=== PATIENT | female | born 1965 | race Two or more races ===

== ENCOUNTER → 2017-05-20 | Outpatient (CLI) | payer OTHER | LOC: FIMAGING 13:00 | PROVIDERS: ATTEND Obstetrics & Gynecology | DX: Z12.31 Encounter for screening mammogram for malignant neoplasm of breast (principal) ==

== ENCOUNTER → 2018-05-25 | Outpatient (CLI) | payer OTHER | LOC: FIMAGING 10:15 | PROVIDERS: ATTEND Obstetrics & Gynecology | DX: Z12.31 Encounter for screening mammogram for malignant neoplasm of breast (principal); Z80.3 Family history of malignant neoplasm of breast ==

== ENCOUNTER 2018-08-15 15:14 | Inpatient (IN) | payer OTHER ==
--- NOTE | 2018-08-15 15:36 | EDPHY ---
H & P Stated Complaint: SI s attempt x2D when learning of new stressors. Med compliant. Time Seen by Provider: 08/15/18 15:25 HPI/ROS: CHIEF COMPLAINT: Depression, suicidal ideation HISTORY OF PRESENT ILLNESS: Patient is a 52-year-old female with a longstanding history of depression who has been on Effexor for several years. She states that her left her 2 months ago and since then she has also been seeing a psychiatrist and has started Wellbutrin, trazodone and Klonopin. Today she found out that her former had been sleeping with someone while they were and is now having suicidal thoughts. She has not ever attempted to harm herself. Her mom brought her here to the ER voluntarily. She denies recent drug or alcohol use. No recent illness or injury. Severity: Moderate Modifying factors: None REVIEW OF SYSTEMS: Constitutional: denies: chills, fever, recent illness, recent injury EENTM: denies: blurred vision, double vision, nose congestion Respiratory: denies: cough, shortness of breath Cardiac: denies: chest pain, irregular heart rate, lightheadedness, palpitations Gastrointestinal/Abdominal: denies: abdominal pain, diarrhea, nausea, vomiting, blood streaked stools Genitourinary: denies: dysuria, frequency, hematuria, pain Musculoskeletal: denies: joint pain, muscle pain Skin: denies: lesions, rash, jaundice, bruising Neurological: denies: headache, numbness, paresthesia, tingling, dizziness, weakness Hematologic/Lymphatic: denies: blood clots, easy bleeding, easy bruising Immunologic/allergic: denies: HIV/AIDS, transplant 10 systems reviewed and negative except as noted EXAM: GENERAL: Overweight, tearful HEAD: Atraumatic, normocephalic. EYES: Pupils equal round and reactive to light, extraocular movements intact, sclera anicteric, conjunctiva are normal. ENT: TMs normal, nares patent, oropharynx clear without exudates. Moist mucous membranes. NECK: Normal range of motion, supple without lymphadenopathy or JVD. LUNGS: Breath sounds clear to auscultation bilaterally and equal. No wheezes rales or rhonchi. HEART: Regular rate and rhythm without murmurs, rubs or gallops. ABDOMEN: Soft, nontender, normoactive bowel sounds. No guarding, no rebound. No masses appreciated. BACK: No CVA tenderness, no spinal tenderness, step-offs or deformities EXTREMITIES: Normal range of motion, no pitting or edema. No clubbing or cyanosis. NEUROLOGICAL: Cranial nerves II through XII grossly intact. Normal speech, normal gait. 5/5 strength, normal movement in all extremities, normal sensation , normal reflexes PSYCH: Tearful, depressed SKIN: Warm, dry, normal turgor, no visible rashes or lesions. Source: Patient Exam Limitations: No limitations - Personal History Current Tetanus/Diphtheria Vaccine: Yes - Medical/Surgical History Hx Asthma: No Hx Chronic Respiratory Disease: No Hx Diabetes: No Hx Cardiac Disease: No Hx Renal Disease: No Hx Cirrhosis: No Hx Alcoholism: No Hx HIV/AIDS: No Hx Splenectomy or Spleen Trauma: No Other PMH: Depression - Family History Significant Family History: No pertinent family hx - Social History Smoking Status: Never smoked Alcohol Use: None Constitutional: Initial Vital Signs Temperature (C) 36.8 C 08/15/18 15:18 Heart Rate 92 08/15/18 15:18 Respiratory Rate 18 08/15/18 15:18 Blood Pressure 108/78 08/15/18 15:18 O2 Sat (%) 95 08/15/18 15:18 O2 Delivery Mode Room Air Allergies/Adverse Reactions: peanut Allergy (Verified 08/15/18 15:18) Sulfa (Sulfonamide Antibiotics) Allergy (Verified 08/15/18 15:18) Medical Decision Making ED Course/Re-evaluation: 5:00 p.m. patient is medically cleared. Awaiting psychiatric evaluation. 9:30 p.m. Patient evaluated by Mental Health and placed on an M1 hold by mt. Accepted by Dr. Fisher to [facility]. Transfer paperwork completed. Differential Diagnosis: Partial list of the Differential diagnosis considered include but were not limited to; duration, suicidality, substance abuse and although unlikely based on the history and physical exam, I also considered head injury, infection. - Data Points Laboratory Results: Laboratory Results 08/15/18 16:15 08/15/18 16:15 Medications Given: Trazodone HCl (Trazodone) 100 mg PO HS LESLY Stop: 02/12/19 00:44 Last Admin: 08/16/18 01:01 Dose: 100 mg Venlafaxine HCl (Effexor Xr) 75 mg PO HS LESLY Stop: 02/12/19 00:44 Last Admin: 08/16/18 01:01 Dose: 75 mg Departure - Departure Disposition: [facility] IP Clinical Impression: Suicidal ideation Condition: Fair
[2018-08-15 16:37] LABS: PLATELET COUNT 298 10^3/uL (150-400)
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
--- NOTE | 2018-08-15 23:04 | ASMTTCLDSP ---
TLC Discharge Disposition Disposition: Answers: Admit Disposition Notes: Notes: Pt admitted. Discharge Concerns/Recommendations: Notes: In consultation with [facility] ED physician, Pollo Kendall MD and on-call psychiatrist, Олег Fisher MD, both concurred that pt appears to meet 27-65 criteria requiring psychiatric hospitalization as pt appears to be at risk of harm to self due to a mental illness condition. . Pt was read the Patient Rights and Responsibilities Statement on 08/15/18 at 21:30 hrs, original placed on chart, and was given photocopy of Rights. Pt signed the Patient Rights. Pt was given the 3N prohibited belongings list while in the ED. Was patient given the Answers: Yes Inpatient Behavioral Health Prohibited Belongings List while in the ED? For inpatient Олег Fisher MD admission, the following psychiatrist agreed to accept patient for admission to Behavioral Health ([facility]): Type of Hold: Answers: M1/72-hour Hold Hold initiated by: Answers: ED Physician Date Signed: 08/15/2018 11:03 PM Electronically Signed By:Priscilla Hernandez
--- NOTE | 2018-08-15 23:41 | GCON ---
[f rep st] CONSULTATION DATE OF CONSULTATION: 08/15/2018 CHIEF COMPLAINT: Suicidal ideation. HISTORY OF PRESENT ILLNESS: The patient is a pleasant 52-year-old female with a past medical history of depression who presented to the [facility] emergency room after developing suicid al ideation. She describes a long history of depression and had been on Effexor over the past years. The dose was being tapered down as she was interested in stopping to reassess its necessity. Unfor tunately, her of 20 years left their marriage and patient also found out that he had been hav ing an affair. This worsened her depression, so she was working with a local psychiatrist, Dr. Riya muhammad, and the dose of Effexor was being titrated up. Recently, as well, Wellbutrin was added and she w as taking trazodone at nighttime for sleep. Clonazepam was used twice a day and also an additional d ose midday if needed for increased anxiety. Unfortunately, despite medication changes, she started d eveloping suicidal thoughts. She corresponded with her mental health providers and ultimately then c ibeth to the emergency room. She is currently on an M1 hold [facility] PAST MEDICAL HISTORY: Depression. PAST SURGICAL HISTORY: None. MEDICATIONS: As detailed in the HPI. ALLERGIES: Sulfa drugs and peanut allergy. FAMILY HISTORY: Mother is currently living and reportedly healthy. Father of stomach cancer. SOCIAL HISTORY: The patient is currently going through a divorce. She has 1 child with her former elidia usband. She is a nonsmoker. No known history of substance abuse. REVIEW OF SYSTEMS: CONSTITUTIONAL: No report of any fevers or chills. ENT: No recent upper respir atory illnesses. CARDIOVASCULAR: No complaints of any chest pains, palpitations, or syncopal episod es. RESPIRATORY: No shortness of breath or productive cough. GI: No nausea, vomiting, diarrhea. Positive for recent constipation. No focal abdominal pains. NEUROLOGIC: No complaints of any heada ches or focal weakness. HEMATOLOGIC: No history of any deep vein thrombosis or pulmonary embolism. PSYCHIATRIC: Positive for depression and anxiety. ENDOCRINE: No history of polyuria or heat intol erance. SKIN: No new skin rashes. MUSCULOSKELETAL: No joint pains. PHYSICAL EXAM: VITAL SIGNS: Temperature 36.5, blood pressure 115/78, heart rate 72 respirations 16, satting 95% on room air. GENERAL: The patient appears comfortable, but she is tearful during our d iscussion. HEENT: Extraocular movements appear intact. No scleral icterus. NECK: Supple. No thy roid enlargement. CHEST: Clear on auscultation with normal respiratory effort. HEART: Regular rat e and rhythm. No murmurs. ABDOMEN: Soft, nontender, nondistended. Normal bowel sounds. : No F oley catheter in place. EXTREMITIES: No significant pitting edema or calf pain with palpation. KULDEEP ROLOGIC: Cranial nerves 2-12 appear grossly intact. 5/5 strength in extremities. LABORATORIES: White blood cell count 5, hemoglobin 13, platelets 298. Sodium 139, potassium 3.8, ch loride 106, bicarb 21, BUN 10, creatinine 0.7, glucose of 108. Beta hCG negative. Urine toxicology negative. ASSESSMENT/PLAN: Suicidal ideation. The patient unfortunately has had worsening depression by medic ation changes. Certainly recent lifestyle adjustments with her pending divorce are worsening her sit uation. Patient will be transferred to inpatient Behavioral Health for further evaluation and treatm ent. Otherwise, no other medical issues are identified during this evaluation. /[id number]/MODL
[2018-08-16] MEDS ORDERED: MAG HYDROX/AL HYDROX/SIMETH 30 ML UDCUP PO PRN (00:32)
[2018-08-16] MEDS ORDERED: ACETAMINOPHEN 325 MG TAB PO PRN (00:32)
[2018-08-16] MEDS ORDERED: NICOTINE POLACRILEX 2 MG GUM B PRN (00:32)
[2018-08-16] MEDS ORDERED: LORazepam 0.5 MG TAB PO PRN (00:32)
[2018-08-16] MEDS ORDERED: OLANZapine DISINTEGR 10 MG TAB PO PRN (00:32)
[2018-08-16] MEDS ORDERED: VENLAFAXINE XR 75 MG CAP PO SCH ×2 (00:45→18:00)
[2018-08-16] MEDS: traZODone 100 MG TAB PO SCH ×2 (01:01→21:12)
[2018-08-16] MEDS ORDERED: OLANZapine DISINTEGR 5 MG TAB PO PRN (08:30)
[2018-08-16] MEDS: VENLAFAXINE XR 75 MG CAP PO SCH (08:31)
[2018-08-16] MEDS: LORazepam 1 MG TAB PO SCH ×2 (08:32→21:13)
[2018-08-16] MEDS ORDERED: clonazePAM 0.5 MG TAB PO SCH (09:00)
--- NOTE | 2018-08-16 09:52 | BAPA ---
[f rep st] ADMISSION PSYCHIATRIC ASSESSMENT DATE OF SERVICE: 08/16/2018 CHIEF COMPLAINT: "Couldn't bear emotional pain anymore." HISTORY OF PRESENT ILLNESS: From the ED note dated 08/15/2018, patient presented to the emergency room, reported her left her 2 months ago, and since has also been seeing a psychiatrist and started antidepressant and anti-anxiolytic medications. Patient reported that prior to presenting to the emergency room she found out her former had been sleeping with someone while they were and reported having suicidal thoughts. Patient was brought to the emergency room by her mother. From the [facility] evaluation dated 08/15/2018, patient was placed on a 72-hour M1 hold with start date and time of 08/15/2018 at 8:38 p.m. Patient reported to the [facility] agriculture consultant, "My left me on June 20. He informed me he had 2 affairs during our marriage. I can't stand it anymore. The pain is too much. I can't bear it. I just want it to stop." Patient reports history of depression and anxiety. Patient reports being on Effexor 75 mg p.o. q. day for quite some time. Reports that at one point she was working with the psychiatrist on tapering and discontinuing Effexor. However, due to current circumstances, Effexor was increased back to 75 mg p.o. q. day. Patient reports also starting trazodone with current dose of 100 mg p.o. q.h.s. for sleep. Patient reports good response for trazodone for insomnia symptoms. Patient also describes prescription of Klonopin 0.5 mg p.o. b.i.d. Patient reports she feels as though Klonopin takes a long time to start working. Patient describes current psychiatric symptoms as depression symptoms , including depressed mood nearly all day every day, poor appetite with recent weight loss, insomnia, fatigue, loss of energy, feelings of worthlessness, and recent suicidal ideation. The patient also describes anxiety symptoms, including excessive worry and finding it difficult to control her worry leading to being easily fatigued and at times sleep disturbance. Patient reports no history of abuse. Patient denies other psychiatric symptoms, including symptoms of tequila, ADHD, OCD, PTSD, psychosis, and any other symptom of psychiatric disorder not already described above. PAST PSYCHIATRIC HISTORY: Patient reports history of depression since high school. Patient reports she has engaged in therapy periodically and started taking medications in 2008. Patient reports no history of suicide attempts. Patient does report a history of having suicidal thoughts but reports never having a plan. Patient reports no history of psychiatric hospitalizations. Patient reports she currently engages in individual therapy and attends appointments every 2 weeks. Patient reports she did contact her therapist prior to presenting to the emergency department. Patient reports started seeing a psychiatrist in June of this year. Patient's current psychiatrist is Dr. Cueva and therapist Galina Murry. ALLERGIES: 1. Peanuts. 2. Sulfa. CURRENT MEDICATIONS: 1. Tylenol 650 mg p.o. q.4 hours p.r.n. 2. Ativan 1 mg p.o. b.i.d. 3. Maalox syrup 30 mL p.o. q.6 hours p.r.n. 4. Milk of magnesia 30 mL p.o. q. day p.r.n. 5. Trazodone 100 mg p.o. q.h.s. 6. Effexor XR 150 mg p.o. q. day. PAST MEDICAL HISTORY: Patient reports past medical history as a partial dislocated collarbone and sprained ankle. Patient has had 2 pregnancies, 1 full term with normal delivery and 1 miscarriage. SOCIAL HISTORY: Patient reports she was for 20 years and has a 17-year- old son who will graduate this year. Patient describes her moving out June of 2018 and reports that her initially agreed to attend counseling to try to work on their marriage but later stated he did not love the patient anymore and requested a divorce. Patient recently learned that her had 2 affairs during their marriage. 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 The patient reports that the community is very supportive to her. Patient reports her son resides in the home with her, and her moved into his own condo in a neighboring community prior to her admission. Patient describes sexual orientation as heterosexual. Reports she is currently not sexually active. Patient describes having a very supportive network. Reports the community in which she lives is supportive. She has several supportive friends and is currently well established with both psychiatry and therapist on an outpatient basis. Patient describes highest level of education as master of arts degree in moravian studies at [employer]. 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 Patient reports this is currently a 6-month position with the possibility of becoming permanent. 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 The patient reports no history of duty. Reports no legal history. The patient identifies herself as agnostic and reports no taoist or spiritual practice that may impact her treatment. Patient reports several leisure activities, including singing, watching sci-fi movies, reading books, working with her personal carer twice a week, jogging around the [place], and playing with her dog during her free time. SUBSTANCE USE HISTORY: Patient reports first use of alcohol at age 20. Patient reports she currently drinks 1 glass of wine a few nights a week. Patient reports since June of 2018 when starting psychotropic medications she typically only consumes 1 drink once per week. Patient describes first using marijuana at the age of 21 and reports current pattern of use as every couple of months in the form of chocolate edibles and reports she sometimes vapes. Patient reports she last used marijuana on June 20, 2018. Patient's blood alcohol level and toxicology screen were negative at time of admission. FAMILY PSYCHIATRIC HISTORY: Patient reports both maternal and paternal grandfathers abused alcohol. Patient reports maternal uncle abused illicit drugs, did not describe specifics. Patient reports depression on maternal side of the family. ADMISSION LABS AND STUDIES: 1. CBC within normal limits except MCHC was low at 32.0. 2. BMP within normal limits except carbon dioxide was low at 21. Glucose is elevated at 108. 3. Beta hCG qualitative test was negative. 4. Toxicology screen was negative for all the substances that were screened and negative for ethyl alcohol. MENTAL STATUS EXAM: The patient is a well-nourished female looking stated chronological age. Attire is appropriate, and dress is casual. Grooming status is appropriate. Ambulation is independent. Gait is normal and coordinated. Posture is normal and relaxed. Eye contact is appropriate and adequate. Motor activity is appropriate with purposeful, organized, coordinated movements with no involuntary movements noted. Attitude is cooperative and friendly. Patient appears attentive and relates well to this interviewer. Language production is spontaneous. Rate, rhythm, and volume are normal. Articulation is clear. Patient reports mood as "depressed" with congruent affect. Patient is tearful during evaluation. Patient's thought process is linear and logical with no loose associations, tangential thought, thought blocking, concrete thinking, or any other signs of formal thought disorder. Patient does not report suicidal or homicidal thoughts, ideas, or plans. Patient denies auditory, visual hallucinations. Patient denies delusions. Patient does not appear to be attending to internal stimuli. Patient is oriented to person, place, time, and situation. The patient's attention and concentration are fair. Patient's insight and judgment are fair. There is no evidence of gross cognitive dysfunction at any point during the interview and no evidence of apparent dysfunction in recent or remote memory noted. The patient does not report undesirable side effects from current medications. DIAGNOSIS: Based on the patient's history and current presentation, patient's diagnoses are: 1. Adjustment disorder with disturbance of emotion. 2. Major depressive disorder, severe, with anxious distress. 3. Generalized anxiety disorder. FORMULATION: Patient is a 52-year-old female currently and going through a divorce, currently living in [place], [place], with her son, presents to the hospital involuntarily due to a risk to herself and is currently on an M1 hold. Patient requires continued inpatient care because of current depression and recent suicidal ideation. Patient presents with increased depression and anxiety. The exacerbation of symptoms was preceded by patient's asking for a divorce and patient recently finding out her had affairs while they were . Patient has a past psychiatric history of depression and at time of admission was treated with Effexor XR 75 mg p.o. q. day, trazodone 100 mg p.o. q.h.s., and patient also reports taking Wellbutrin XL 300 mg p.o. q. day. Patient also recently started on Klonopin 0.5 mg p.o. b.i.d. for anxiety. Patient is a high suicide safety risk due to current depression and recent suicidal ideation. Protective factors while hospitalized include ongoing safety checks, active involvement in treatment, and support from our treatment team. Patient could benefit from inpatient hospitalization for safety, crisis stabilization, and medication evaluation. PLAN: 1. Medications: After reviewing options, risks, and benefits with the patient , patient agrees to current medications listed above. Patient reports that Effexor XR has been beneficial in the past. She has never been dosed higher than 75 mg and agrees to trial of 150 mg p.o. q. day. Patient agrees to continue trazodone 100 mg p.o. q.h.s. for sleep. Patient also states that she feels as though Klonopin is helpful, however, takes too long to work. The patient agrees to trial of Ativan 1 mg p.o. b.i.d. and agrees to discontinue Klonopin. No other medication changes at this time as more time is needed to determine ongoing tolerability and efficacy. Plan is to continue to observe patient for response and side effects from medications, and ongoing monitoring and evaluation. 2. Review with patient informed consent and recommendations for psychotropic medication treatment listed below 3. Labs: TSH, liver function, lipid panel, and A1c 4. Therapy: continue milieu and group therapy 5. Further investigation including gathering information from patients relatives and review of past case records to inform treatment plan. 6. Safety/Wellness plan and follow-up outpatient appointments to be established prior to discharge. Next steps are for patient to meet with career manager to plan a safe discharge plan and establish outpatient services for ongoing treatment. 7. Confer with inpatient treatment team regarding treatment plan. 8. Address psychosocial stressors by meeting with home health caregiver to establish discharge plan including referrals for outpatient services. 9. Legal status: M1 10. Consider discharge on Thursday if patient is in stable condition, safe, and has a safe discharge plan. ESTIMATED LENGTH OF STAY: 1-3 days PSYCHOTROPIC MEDICATION TREATMENT INFORMED CONSENT and RECOMMENDATIONS: Review nature of condition, diagnosis, and prognosis. Review nature and purpose of psychotropic medication treatment. Review type of psychotropic medications being ordered. Review risk and benefits of psychotropic medication treatment. Review probable length of time will need to take medications. Review risk and benefits of not undergoing psychotropic medication treatment. Review alternative treatments to psychotropic medications. Review psychotropic medications contraindications, drug-drug interactions, side effects, and importance of reporting any side effects to a psychiatric provider or nurse during inpatient hospitalization, and upon discharge to patients psychiatric outpatient provider, primary care provider, or other health childcare aide. Review importance of asking a nurse, psychiatric provider, or primary care provider any questions or problems concerning the psychotropic medications. Verify patient understands the information that has been provided, and understands, accepts, and agrees to psychotropic medications. Review patients safety plan and importance of patient to communicate to staff while hospitalized if patient is ever a danger to self/others, or unable to care for self, and upon discharge, the importance for patient to contact [facility] or [facility], or go to the nearest emergency room, if patient is ever a danger to self/others, or unable to care for self. Recommend that upon discharge patient establish medication management treatment with a psychiatric provider, establishes routine therapy appointments, and follow-up with primary care provider. Verify patient understands and agrees to these recommendations. /[id number]/MODL MTDD
[2018-08-16] MEDS: MAGNESIUM HYDROXIDE 30 ML UDCUP PO PRN ×2 (14:21→20:10)
--- NOTE | 2018-08-16 14:43 | ASMTBHMTP ---
Master Treatment Plan Master Treatment Plan Answers: Depressed Mood with for: Suicidal Ideation Date: 08/16/2018 Diagnosis on Admission: Major Depressive Disorder, recurrent, severe 296.33 (F33.2) Expected length of stay: 3-5 Reason for admission: Notes: The patient in June of 2018 after learning that her had multiple affairs. She stated, "I can't stand it anymore, the pain is too much and I can't bear it. I just want it to stop." The patient reported increased suicidal ideation. Patient's stated presenting problems: Notes: The patient recently . As a result, she is unable to regulate and her daily functioning has decreased. Patient's goals for treatment: Notes: The patient stated, "I want to feel like I can bear emotional pain or reduce. I don't want to feel hopeless or I would like to do anything stop." Patient's strengths: Notes: The patient stated, "You don't have large enough piece of paper. 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 Cueva and Galina Murry. She is also supported by her mother. Discharge criteria: Notes: Suicidal ideation will resolve and patient will have a plan to safely manage recurrent suicidal ideation. Initial disposition plan/considerations: Notes: The patient will return home, to routine, and follow up care. Master Treatment Plan Required Signatures Psychiatrist signature: Answers: BELLE Cnote: RN on-shift signature: Answers: RN: Patient signature: Answers: Patient: Date Signed: 08/16/2018 02:41 PM Electronically Signed By:Adriana Nelson
[2018-08-16] MEDS ORDERED: ESTRADIOL 42.5 GM CRTUBE VG SCH ×2 (21:00)
--- NOTE | 2018-08-17 07:57 | SOAPPROG ---
SOAP Progress Note Assessment/Plan: Assessment: Major Depressive Disorder, Severe, with anxious distress. Improvement noted. ( see subjective/objective note). Patient could benefit from continued inpatient hospitalization for crisis stabilization, safety, medication evaluation, and to establish safe discharge plan including follow-up appointments. Consider discharge tomorrow. Plan: 1. Psychotropic medications: After reviewing options, risks, and benefits patient agrees to continue current medications. No medication changes at this time as more time is needed to determine ongoing tolerability and efficacy. Plan is to continue to observe patient for response and side effects from medications, and ongoing monitoring and evaluation. 2. Review with patient informed consent and recommendations for psychotropic medication treatment listed below 3. Labs: no additional at this time 4. Therapy: continue milieu and group therapy 5. Further investigation including gathering information from patients relatives and review of past case records to inform treatment plan. 6. Safety/Wellness plan and follow-up outpatient appointments to be established prior to discharge. Next steps are for patient to meet with customer care agent to plan a safe discharge plan and establish outpatient services for ongoing treatment. 7. Confer with inpatient treatment team regarding treatment plan. 8. Psychosocial stressors addressed through director of casework department. 9. Legal status: M1 10. Consider discharge this week if patient is in stable condition, safe, and has a safe discharge plan. PSYCHOTROPIC MEDICATION TREATMENT INFORMED CONSENT and RECOMMENDATIONS: Review nature of condition, diagnosis, and prognosis. Review nature and purpose of psychotropic medication treatment. Review type of psychotropic medications being ordered. Review risk and benefits of psychotropic medication treatment. Review probable length of time patient will need to take medications. Review risk and benefits of not undergoing psychotropic medication treatment. Review alternative treatments to psychotropic medications. Review psychotropic medications contraindications, drug-drug interactions, side effects, and importance of reporting any side effects to a psychiatric provider or nurse during inpatient hospitalization, and upon discharge to patients psychiatric outpatient provider, primary care provider, or other health health care facilities inspector. Review importance of asking a nurse, psychiatric provider, or primary care provider any questions or problems concerning the psychotropic medications. Verify patient understands the information that has been provided, and understands, accepts, and agrees to psychotropic medications. Review patients safety plan and importance of patient to report to staff while hospitalized if patient is ever a danger to self/others, or unable to care for self, and upon discharge, the importance for patient to contact [facility] or [facility], or go to the nearest emergency room, if patient is ever a danger to self/others, or unable to care for self. Recommend that upon discharge patient establish medication management treatment with a psychiatric provider, establishes routine therapy appointments, and follow-up with primary care provider. Verify patient understands and agrees to these recommendations. 08/17/18 07:55 Subjective: Following up with patient for evaluation of mood and safety. Patient reports, "Feeling better this morning. Was a little tired yesterday, but that may have been because I didn't get much sleep the night before. Will try the medications again today and see how I feel. Overall, this has been a good experience so far." Patient reports taking medications as prescribed. Patient does not report undesirable side effects from the medications, and agrees to continue current medications. Objective: Vital Signs Temp Pulse Resp BP Pulse Ox 36.6 C 88 14 126/72 H 93 08/17/18 06:00 08/17/18 06:00 08/17/18 06:00 08/17/18 06:00 08/17/18 06:00 MSE: The patient is a well-nourished female looking stated chronological age. Attire is appropriate dress is hospital garb. Grooming status is appropriate. Ambulation is independent. Gait is normal and coordinated. Posture is normal. Eye contact is appropriate. Motor activity is appropriate with purposeful, organized, coordinated movements; with no involuntary movements. Attitude is cooperative. Patient appears attentive and relates well to this interviewer. Language production is spontaneous. R/R/V normal. Articulation is clear. Patient reports mood as okay with congruent affect. Patients thought process is linear and logical with no signs of thought disorder. Patient does not report suicidal/homicidal thoughts, ideas, or plans. Patient denies auditory, visual hallucinations. Patient denies delusions. Patient does not appear to be attending to internal stimuli. Patients attention and concentration are fair. Patient is oriented to person, place, time. Patients insight is poor. Patients judgment is poor. - Time Spent With Patient Time Spent With Patient: 15 minutes, met with patient individually. - Pending Discharge Pending Discharge Within 24 Hours: No Pending Discharge Within 48 Hours: No ICD10 Worksheet Patient Problems: Problems Problem Status Onset Adjustment disorder with disturbance of emotion Acute Generalized anxiety disorder Chronic Major depressive disorder, recurrent episode, severe with anxious distress Chronic
[2018-08-17] MEDS: VENLAFAXINE XR 75 MG CAP PO SCH (08:27)
[2018-08-17] MEDS: LORazepam 1 MG TAB PO SCH ×2 (08:27→21:34)
--- NOTE | 2018-08-17 14:23 | ASMTBHDC ---
Notes Note: Notes: The patient participated in clinical treatment team rounds; she was engaged and appropriate. The patient presented as sad and tearful. The patient discussed her reason for admission, support system, and goals for tx. She hopes to increase her coping strategies, prevent future crises, and connect with her support system. The patient discussed wanting to "forgive, let go, and move on." The patient demonstrated insight and agreed to remain in the hospital on a voluntary basis. She reported several upcoming events including her son's 18th birthday, high school graduation, and beginning college. The patient expressed concern about managing her symptoms during these events. Date Signed: 08/17/2018 02:21 PM Electronically Signed By:Adriana Nelson
[2018-08-17] MEDS: traZODone 100 MG TAB PO SCH (21:35)
[2018-08-18 06:37] VITALS: BP 127/77
[2018-08-18] MEDS: VENLAFAXINE XR 75 MG CAP PO SCH (08:10)
[2018-08-18] MEDS ORDERED: clonazePAM 0.5 MG TAB PO SCH (09:00)
--- NOTE | 2018-08-18 13:20 | BDS ---
[f rep st] BEHAVIORAL HEALTH DISCHARGE SUMMARY REASON FOR ADMISSION: From the ED note dated 08/15/2018, patient presented to the emergency department, reported her had left her 2 months ago. Patient reports she recently found out her former had been sleeping with someone while they were and reported suicidal thoughts at time of presenting to the emergency room. Patient was admitted involuntarily and on an M1 hold due to being a danger to herself. Patient was admitted for safety, crisis stabilization, and medication evaluation. ADMITTING DIAGNOSES: 1. Major depressive disorder, recurrent episode, severe, with anxious distress. 2. Generalized anxiety disorder. 3. Adjustment disorder with disturbance of emotion. ADMISSION PHYSICAL EXAM: Patient was seen on 08/15/2018 for history and physical consultation for medical clearance for inpatient psychiatric hospitalization and treatment. Patient was medically cleared for inpatient psychiatric hospitalization and treatment. For further details, please refer to consultation document dated 08/15/2018. ADMISSION LABS: 1. CBC within normal limits except MCHC was low at 32.02. 2. BMP within normal limits except carbon dioxide was low at 21 and glucose is elevated at 108. 3. Hemoglobin A1c within normal limits at 5.9. 4. Liver function within normal limits. 5. Lipid panel within normal limits. 6. TSH within normal limits at 1.540. 7. Beta HCG qualitative test negative. 8. Toxicology screen negative for all the substances that were screened and negative for ethyl alcohol. MAJOR PROCEDURES OR TESTS: None. HOSPITAL COURSE: The most prominent symptoms and behaviors while the patient was here were severe anxiety and depression. Treatment modalities utilized were milieu and group therapy. Effexor XR was continued, titrated to 150 mg p.o. daily to target mood symptoms, was tolerated with no report of side effects and with good response. Trazodone 100 mg p.o. at bedtime was continued to target insomnia symptoms related to depression and anxiety, was tolerated with no report of side effects and with good response. Ativan 1 mg p.o. twice daily was started to target anxiety symptoms; patient reported medication made her feel tired and requested to switch back to Klonopin 0.5 mg p.o. twice daily. Klonopin was tolerated with no report of side effects and with good response. Patient has improved considerably with no signs of psychiatric symptoms and no psychiatric symptoms expressed. Patient reports she has improved since admission, states to be in stable condition, feels safe to discharge, and she contracts for safety. Patients response to treatment was good. There were no adverse or unexpected results of treatment. The patient was safe throughout stay, active in treatment, engaged in groups, and was appropriate with staff. Patient met with treatment team prior to discharge to assess readiness to discharge and review discharge plan. The treatment team consensus is the patient in stable condition, has a safe discharge plan, and is ready to discharge today. CONDITION AT DISCHARGE: Patient is in stable condition and is no longer a danger to self or others, and is not gravely disabled due to mental illness. Patient is no longer in need of inpatient level of care, and can be safely and effectively treated within the community. The patients level of risk at time of discharge is low. MSE: The patient is casually dressed and with good hygiene , and looks stated age. Patient is sitting, posture is upright, and position is relaxed. Patient appears awake, alert, and responds appropriately and reasonably during interview. Patient is engaged, relates well to interviewer, and emotional facial expression is appropriate to situation and changes appropriately with topic. Patient is cooperative, makes comfortable eye contact , and movements are voluntary, deliberate, coordinated, and smooth and even with no inappropriate movements. Patient makes laryngeal sounds effortlessly and shares conversation appropriately; pace of conversation is appropriate, and stream of talking is fluent; articulation is clear and understandable; word choice is effortless and appropriate for education level; completes sentences, occasionally pausing to think; rate and volume are appropriate for interview and setting. Patient reports mood as euthymic. Patients affect is stable with full variable range, congruent with mood, and appropriate to speech and circumstances. Patient has linear and logical thinking, with no loose associations, tangential thought, thought blocking, concrete thinking, or any other signs of formal thought disorder. Patient denies suicidal and homicidal ideation, and denies hallucinations and delusions. Patient appears to be a reliable historian with sound judgement and good insight into current condition. Patient has no apparent dysfunction in recent or remote memory noted , and no evidence of gross cognitive dysfunction noted at any point during the interview. DISCHARGE DIAGNOSES: 1. Major depressive disorder, recurrent episode, severe, with anxious distress. 2. Generalized anxiety disorder. 3. Adjustment disorder with disturbance of emotion. CURRENT MEDICATIONS: Patient agrees to continue: 1. Effexor XR 150 mg p.o. daily. 2. Trazodone 100 mg p.o. at bedtime. 3. Klonopin 0.5 mg p.o. twice daily. 4. Estradiol Estrace vaginal 1 g VG twice a week during hospitalization. Patient's scheduled dose was Thursday and at 9 p.m. Patient reports she has prescriptions for these medications and requests no prescriptions at time of discharge. Medications are reviewed with the patient at time of discharge to ensure accuracy and patient understanding. Patient describes plan to follow-up with her outpatient psychiatrist for ongoing medication management. DISPOSITION: Patient left hospital independently and voluntarily with her mother and plans to return to her home in [place], [place]. FOLLOWUP: crm coordinator reports the appropriate outpatient follow-up services have been established and outpatient appointments have been scheduled. The patient received written instructions with times and dates of outpatient follow-up appointments. The following follow-up recommendations were provided to the patient at discharge: Continue psychotropic medications as prescribed and attend appointments as scheduled. Report any side effects to a psychiatric outpatient provider, a primary care provider, or other health long term care social worker. Address any questions or problems concerning the psychotropic medications with a psychiatric outpatient provider, a primary care provider, or other health long term care social worker. Contact [facility] or [facility], or go to the nearest emergency room, if you are ever a danger to yourself/others, or unable to care for yourself. As soon as possible, establish a routine medication management treatment with a psychiatric provider, establish routine therapy appointments, and follow-up with a primary care provider. LEGAL COURSE: Patient was admitted on an M1 hold for involuntary inpatient psychiatric hospitalization. Patient discharged today independently and voluntarily. ATTITUDE AT TIME OF DISCHARGE: The patients attitude was positive at time of discharge, and patient reports looking forward to discharging today. The patient reports she feels safe to discharge, is no longer a danger to herself or others, is in stable condition, and contracts for safety. Patient states she will continue medications as prescribed, and establish medication management treatment with an outpatient provider after discharge. Patient reports she understands the information that has been provided to her, and she understands, accepts, and agrees to psychotropic medications. Patient describes internal protective factors as the coping skills she has learned while hospitalized here, and she plans to continue to practice these coping skills after discharge. LABS AND RADIOLOGY STUDIES: There were no pending labs or studies at time of discharge. ADVANCE DIRECTIVES: There were no advance directives on file, and patient was full code during this hospitalization. /[id number]/[id number] MTDD
== END 2018-08-18 12:37 | disposition home or self-care (01) | DRG 885 ==
LOC: BBEH 23:40
PROVIDERS: ADMIT Psychiatry & Neurology Psychiatry; ATTEND Registered Nurse
DX: F33.2 Major depressive disorder, recurrent severe without psychotic features (principal); F41.1 Generalized anxiety disorder; R45.851 Suicidal ideations; F43.21 Adjustment disorder with depressed mood
CPT/HCPCS: 80305; G0480